=== PATIENT | female | born 1965 | race Caucasian/White ===

== ENCOUNTER 2017-07-04 14:37 | Emergency (ER) | payer OTHER ==
[2017-07-04] MEDS ORDERED: traMADol HCL 50 MG TABLET PO ONE (14:52)
[2017-07-04 14:53] VITALS: BP 104/62; PULSE 52; TEMP 98.9; BMI 31.5
[2017-07-04] MEDS ORDERED: traMADol HCL 50 MG TABLET ONE (14:53)
--- NOTE | 2017-07-04 14:56 | PDOC ---
History of Present Illness - General History Source: Patient Exam Limitations: No Limitations <Roosevelt Corbin - Last Filed: 07/04/17 14:56> - General History Source: Patient Exam Limitations: No Limitations - History of Present Illness Initial Comments: 07/04/17 15:03 The patient is a 51 year old female, with a significant past medical history of CVA, hypothyroidism, who presents to the emergency room complaining of left sided dental pain on tooth 14 for approx. three days. She states she took Motrin for the pain with no relief. The patient reports she is also currently on the medication Suboxone. She denies fever or chills. She denies nausea, vomiting or dizziness. She denies chest pain or shortness of breath. Allergies: Penicillins Past surgical history: Patient reports prior tooth extraction. Primary Care Physician: Dr. Nancy Biggs <Gonzalo Rizvi - Last Filed: 07/04/17 15:09> - General Chief Complaint: Toothache Stated Complaint: TOOTH ACHE X 3 DAYS Time Seen by Provider: 07/04/17 14:39 Past History - Past Medical History CVA: Yes (TIA) Thyroid Disease: Yes (HYPO) - Surgical History Abdominal Surgery: No - Immunization History Td Vaccination: Yes Immunization Up to Date: No - Suicide/Smoking/Psychosocial Hx Smoking Status: No Smoking History: Never smoked Have you smoked in the past 12 months: No Number of Cigarettes Smoked Daily: 0 Information on smoking cessation initiated: No Hx Alcohol Use: No Drug/Substance Use Hx: No Substance Use Type: None <Roosevelt Corbin - Last Filed: 07/04/17 14:56> <Gonzalo Rizvi - Last Filed: 07/04/17 15:09> - Past Medical History Allergies/Adverse Reactions: Allergies Allergy/AdvReac Type Severity Reaction Status Date / Time Penicillins Allergy Verified 07/04/17 14:39 Home Medications: Ambulatory Orders Levothyroxine [Synthroid -] 112 mcg PO DAILY 01/22/15 Tramadol HCl 50 mg PO Q6H PRN #10 tablet MDD 4 07/04/17 Review of Systems - Review of Systems Comments:: 07/04/17 15:04 GENERAL/CONSTITUTIONAL: +Left sided dental pain tooth 14. No fever or chills. No weakness. HEAD, EYES, EARS, NOSE AND THROAT: No change in vision. No ear pain or discharge. No sore throat. CARDIOVASCULAR: No chest pain or shortness of breath. RESPIRATORY: No cough, wheezing, or hemoptysis. GASTROINTESTINAL: No nausea, vomiting, diarrhea or constipation. GENITOURINARY: No dysuria, frequency, or change in urination. MUSCULOSKELETAL: No joint or muscle swelling or pain. No neck or back pain. SKIN: No rash NEUROLOGIC: No headache, vertigo, loss of consciousness, or change in strength/ sensation. ENDOCRINE: No increased thirst. No abnormal weight change. HEMATOLOGIC/LYMPHATIC: No anemia, easy bleeding, or history of blood clots. ALLERGIC/IMMUNOLOGIC: No hives or skin allergy. <Gonzalo Rizvi - Last Filed: 07/04/17 15:09> *Physical Exam - Vital Signs Last Vital Signs Temp Pulse Resp BP Pulse Ox 98.9 F 52 L 16 104/62 100 07/04/17 14:38 07/04/17 14:38 07/04/17 14:38 07/04/17 14:38 07/04/17 14:38 <Roosevelt Corbin - Last Filed: 07/04/17 14:56> - Vital Signs Last Vital Signs Temp Pulse Resp BP Pulse Ox 98.9 F 52 L 16 104/62 100 07/04/17 14:38 07/04/17 14:38 07/04/17 14:38 07/04/17 14:38 07/04/17 14:38 - Physical Exam Comments: 07/04/17 15:06 GENERAL: Awake, alert, and fully oriented. HEAD: No signs of trauma EYES: PERRLA, EOMI, sclera anicteric, conjunctiva clear ENT: +Tenderness to palpation tooth 14. no drainage or erythema. Auricles normal inspection, hearing grossly normal, nares patent, oropharynx clear without exudates. Moist mucosa NECK: Normal ROM, supple, no lymphadenopathy, JVD, or masses EXTREMITIES: Normal range of motion, no edema. No clubbing or cyanosis. No cords, erythema, or tenderness NEUROLOGICAL: Cranial nerves II through XII grossly intact. Normal speech, normal gait SKIN: Warm, Dry, normal turgor, no rashes or lesions noted. <Gonzalo Rizvi - Last Filed: 07/04/17 15:09> ED Treatment Course - Medications Given in the ED: ED Medications Discontinued Medications Generic Name Dose Route Start Last Admin Trade Name Silke PRN Reason Stop Dose Admin Tramadol HCl 50 mg 07/04/17 14:52 07/04/17 14:56 Ultram - PO 07/04/17 14:53 50 mg ONCE ONE Administration <Gonzalo Rizvi - Last Filed: 07/04/17 15:09> Medical Decision Making - Medical Decision Making 07/04/17 14:57 A portion of this note was documented by scribe services under my direction. I have reviewed the details of the note, within reason, and agree with the documentation with the following case summary and management plan written by me. Patient treated in the ED. Nursing notes are reviewed and incorporated into the medical decision-making. Vital signs reviewed. Peripheral IV access obtained by the nurse, laboratory studies are drawn and sent, reviewed and interpreted by myself. Vital Signs Temp Pulse Resp BP Pulse Ox 98.9 F 52 L 16 104/62 100 07/04/17 14:38 07/04/17 14:38 07/04/17 14:38 07/04/17 14:38 07/04/17 14:38 51 year old female presents with tooth 14 pain. Not infected at this time. However, I suspect tooth decay. [employer] registry checked: Reference #: [id number] Rx Written Rx Dispensed Drug Quantity Days Supply Prescriber Name 06/07/2017 06/07/2017 buprenorphine-naloxone 8-2 mg sl tablet 60 30 SpanglerJake davis MD 05/10/2017 05/11/2017 buprenorphine-naloxone 8-2 mg sl tablet 60 30 SpanglerJake MD 04/14/2017 04/14/2017 buprenorphine-naloxone 8-2 mg sl tablet 60 30 SpanglerJake davis MD 03/15/2017 03/15/2017 buprenorphine-naloxone 8-2 mg sl tablet 60 30 SpanglerJake MD 01/04/2017 02/23/2017 buprenorphine 8 mg tablet sl 60 30 SpanglerJake MD 02/17/2017 02/23/2017 buprenorphine 8 mg tablet sl 60 30 SpanglerJake davis MD 01/27/2017 02/01/2017 buprenorphine 8 mg tablet sl 60 30 SpanglerJake MD 11/04/2016 12/12/2016 tramadol hcl 50 mg tablet 28 7 Jesi Trotter 12/10/2016 12/12/2016 buprenorphine 8 mg tablet sl 60 30 SpanglerJake MD 11/12/2016 11/15/2016 buprenorphine 8 mg tablet sl 60 30 Jake Spangler MD 11/02/2016 11/02/2016 buprenorphine 8 mg tablet sl 28 14 Jake Spangler MD 10/26/2016 10/27/2016 buprenorphine 8 mg tablet sl 14 7 Jake Spangler MD 10/08/2016 10/09/2016 buprenorphine 8 mg tablet sl 28 14 Jake Spangler MD 09/14/2016 09/23/2016 buprenorphine 8 mg tablet sl 14 7 Jake Spangler MD 09/23/2016 09/23/2016 buprenorphine 8 mg tablet sl 28 14 Jake Spangler MD 09/07/2016 09/08/2016 buprenorphine 8 mg tablet sl 14 7 Jake Spangler MD 08/31/2016 09/01/2016 buprenorphine-naloxone 8-2 mg sl tablet 7 7 Jake Spangler MD 08/10/2016 08/24/2016 buprenorphine-naloxone 2-0.5 mg sl tablet 5 1 Jake Spangler MD 08/10/2016 08/24/2016 buprenorphine-naloxone 8-2 mg sl tablet 14 7 Jake Spangler MD 08/17/2016 08/24/2016 buprenorphine-naloxone 2-0.5 mg sl tablet 21 7 Jake Spangler MD 08/24/2016 08/24/2016 buprenorphine-naloxone 2-0.5 mg sl tablet 28 7 Jake Spangler MD 07/17/2016 07/17/2016 oxycodone-acetaminophen 5-325 mg tab 240 30 Sheron Raygoza M, MSN, [employer]-, I had discussed the importance of following up with the pain doctor. She states last dose of suboxone was yesterday. The patient insists that NSAIDs do not control the pain. The patient does have significant tooth decay. I advised that I can trial a prescription of tramadol, but she may potentially have side effects with the combination of suboxone and tramadol. She is aware and states that the pain is very severe. Given the circumstances, will give her a small prescription of tramadol and have her follow up with the dentist. I discussed the physical exam findings, ancillary test results and final diagnoses with the patient. I answered all of the patient's questions. The patient was satisfied with the care received and felt comfortable with the discharge plan and treatment plan. The patient will call their primary care physician within 24 hours to arrange follow-up and will return to the Emergency Department with any new, persistant or worsening symptoms. <Roosevelt Corbin - Last Filed: 07/04/17 14:56> *DC/Admit/Observation/Transfer - Discharge Dispostion Admit: No <Roosevelt Corbin - Last Filed: 07/04/17 14:56> - Attestations Scribe Attestion: 07/04/17 15:09 Documentation prepared by Gonzalo Rizvi, acting as director medical science for Roosevelt Corbin MD. <Gonzalo Rizvi - Last Filed: 07/04/17 15:09> Diagnosis at time of Disposition: Toothache - Discharge Dispostion Disposition: HOME Condition at time of disposition: Stable - Prescriptions Prescriptions: Tramadol HCl 50 mg PO Q6H PRN #10 tablet MDD 4 PRN Reason: Toothache - Patient Instructions Printed Discharge Instructions: DI for Dental Pain Additional Instructions: Take 600 mg ibuprofen every 6 hours as needed for tootache. For severe toothache, please take a tablet of tramadol 50 mg every 6 hours as needed. It is very important that you follow up with your dentist as soon as possible, preferably tomorrow.
== END 2017-07-04 15:01 | disposition home or self-care (01) ==
LOC: FER 14:37
DX: K08.89 Other specified disorders of teeth and supporting structures (principal); E03.9 Hypothyroidism, unspecified; Z86.73 Personal history of transient ischemic attack (TIA), and cerebral infarction without residual deficits
CPT/HCPCS: 99282-25

== ENCOUNTER 2017-09-06 17:57 | Emergency (ER) | payer OTHER ==
[2017-09-06 18:07] VITALS: BP 98/59; PULSE 68; TEMP 98; BMI 30.9
[2017-09-06] MEDS ORDERED: IBUPROFEN 600 MG TABLET (FP) PO ONE ×2 (18:21→18:26)
--- NOTE | 2017-09-06 18:21 | PDOC ---
History of Present Illness - History of Present Illness Initial Comments: 09/06/17 18:21 The patient is a 51 year old female, with a significant past medical history of CVA, and hypothyroidism , gout in her toe, who presents to the emergency department with right knee pain( 1 week). She states that pain returned 3 days ago. She previously took tylenol, advil, and percocet for the pain. She states the percocet was the only thing that worked. She describes her pain as pressure like and states it's exacerbated by walking and extension of her leg. She states it starts at knee and travels up. She states that her knee was really swollen yesterday but the swelling has since gone down. Denies recent trauma. She denies recent fevers, chills, headache or dizziness. She denies recent nausea, vomit, diarrhea or constipation. She denies recent dysuria, frequency, urgency or hematuria. She denies recent chest pain or shortness of breath. Allergies: Penicillins Past surgical history: tooth extractions. Social history: Nonsmoker. Denies EtOH use and recreational drug use. Primary Care Physician: Nancy Biggs <Shila Donnelly - Last Filed: 09/06/17 18:25> - General History Source: Patient Exam Limitations: No Limitations <Ktaharina Oden - Last Filed: 09/06/17 18:43> - General Chief Complaint: Pain, Acute Stated Complaint: right knee pain Time Seen by Provider: 09/06/17 17:59 Past History <Shila Donnelly - Last Filed: 09/06/17 18:25> - Past Medical History CVA: Yes (TIA) COPD: No Thyroid Disease: Yes (HYPO) - Surgical History Abdominal Surgery: No - Immunization History Td Vaccination: Yes Immunization Up to Date: No - Suicide/Smoking/Psychosocial Hx Smoking Status: No Smoking History: Never smoked Have you smoked in the past 12 months: No Number of Cigarettes Smoked Daily: 0 Hx Alcohol Use: No Drug/Substance Use Hx: No Substance Use Type: None <aKtharina Oden - Last Filed: 09/06/17 18:43> - Past Medical History Allergies/Adverse Reactions: Allergies Allergy/AdvReac Type Severity Reaction Status Date / Time Penicillins Allergy Verified 07/04/17 14:39 Home Medications: Ambulatory Orders Levothyroxine [Synthroid -] 112 mcg PO DAILY 01/22/15 Tramadol HCl 50 mg PO Q6H PRN #10 tablet MDD 4 07/04/17 Ibuprofen [Motrin -] 600 mg PO TID #90 tablet 09/06/17 Review of Systems - Review of Systems Comments:: 09/06/17 18:23 GENERAL/CONSTITUTIONAL: No fever or chills. No weakness. HEAD, EYES, EARS, NOSE AND THROAT: No change in vision. No ear pain or discharge. No sore throat. GASTROINTESTINAL: No nausea, vomiting, diarrhea or constipation. GENITOURINARY: No dysuria, frequency, or change in urination. CARDIOVASCULAR: No chest pain or shortness of breath. RESPIRATORY: No cough, wheezing, or hemoptysis. MUSCULOSKELETAL: +right knee pain & swelling .No neck or back pain. SKIN: No rash NEUROLOGIC: No headache, vertigo, loss of consciousness, or change in strength/ sensation. ENDOCRINE: No increased thirst. No abnormal weight change. HEMATOLOGIC/LYMPHATIC: No anemia, easy bleeding, or history of blood clots. ALLERGIC/IMMUNOLOGIC: No hives or skin allergy. <Shila Donnelly - Last Filed: 09/06/17 18:25> *Physical Exam - Vital Signs Last Vital Signs Temp Pulse Resp BP Pulse Ox 98.0 F 68 18 98/59 100 09/06/17 17:57 09/06/17 17:57 09/06/17 17:57 09/06/17 17:57 09/06/17 17:57 - Physical Exam Comments: 09/06/17 18:23 GENERAL/CONSTITUTIONAL: No fever or chills. No weakness. HEAD, EYES, EARS, NOSE AND THROAT: No change in vision. No ear pain or discharge. No sore throat. GASTROINTESTINAL: No nausea, vomiting, diarrhea or constipation. GENITOURINARY: No dysuria, frequency, or change in urination. CARDIOVASCULAR: No chest pain or shortness of breath. RESPIRATORY: No cough, wheezing, or hemoptysis. MUSCULOSKELETAL: +right knee pain & swelling .No neck or back pain. SKIN: No rash NEUROLOGIC: No headache, vertigo, loss of consciousness, or change in strength/ sensation. ENDOCRINE: No increased thirst. No abnormal weight change. HEMATOLOGIC/LYMPHATIC: No anemia, easy bleeding, or history of blood clots. ALLERGIC/IMMUNOLOGIC: No hives or skin allergy. <Shila Donnelly - Last Filed: 09/06/17 18:25> - Vital Signs Last Vital Signs Temp Pulse Resp BP Pulse Ox 98.0 F 68 18 98/59 100 09/06/17 17:57 09/06/17 17:57 09/06/17 17:57 09/06/17 17:57 09/06/17 17:57 <Katharina Oden - Last Filed: 09/06/17 18:43> ED Treatment Course - RADIOLOGY Radiology Studies Ordered: Category Date Time Status KNEE 3 POS-RIGHT [RAD] Stat Radiology 09/06/17 18:10 Ordered <Katharina Oden - Last Filed: 09/06/17 18:43> Medical Decision Making - Medical Decision Making 09/06/17 18:18 51-year-old female with a history of gout here today complaining of right knee pain. Symptoms started 3 days ago, no trauma, no fevers chills. Did note swelling on day prior which is today pain is worse with weightbearing and bending of the knee no ankle or hip pain. Did not take anything today prior for pain control On exam right knee has minimal suprapatellar tenderness full range of motion no effusion no warmth no erythema. Differential ligamentous injury, arthritis, doubt, plan NSAIDs x-ray and likely orthopedic follow-up 09/06/17 18:43 X-rays negative for acute fracture. Noted small bony smooth rounded fragment likely an old ossicle or injury. In no acute injury given Motrin. Patient is ambulatory. DC home with Motrin for pain control and orthopedic follow-up <Katharina Oden - Last Filed: 09/06/17 18:43> *DC/Admit/Observation/Transfer - Attestations Scribe Attestion: 09/06/17 18:24 Documentation prepared by Shila Donnelly, acting as biomedical equipment specialist for Katharina Oden MD. <Shila Donnelly - Last Filed: 09/06/17 18:25> - Discharge Dispostion Admit: No <Katharina Oden - Last Filed: 09/06/17 18:43> Diagnosis at time of Disposition: Gouty arthritis - Discharge Dispostion Disposition: HOME Condition at time of disposition: Improved - Prescriptions Prescriptions: Ibuprofen [Motrin -] 600 mg PO TID #90 tablet - Referrals Referrals: Juan Ng MD [Staff Physician] - - Patient Instructions Printed Discharge Instructions: Gout Additional Instructions: You can take Motrin 600 mg every 8 hours as needed for pain. Return for any worsening swelling, fever, chills or any concerns. He can follow-up with orthopedist Dr. Ng, see referral information for phone number to call and schedule. Her x-rays are negative for any acute injury
== END 2017-09-06 18:55 | disposition home or self-care (01) ==
LOC: FER 17:57
DX: M10.9 Gout, unspecified (principal); E03.9 Hypothyroidism, unspecified; Z86.73 Personal history of transient ischemic attack (TIA), and cerebral infarction without residual deficits
CPT/HCPCS: 73562-TC-RT; 99281-25